=== PATIENT | male | born 1970 | race Caucasian/White ===

== ENCOUNTER → 2023-07-08 09:47 | Outpatient (CLI) | payer OTHER, SELFPAY ==
[2023-07-08 19:54] LABS: Add Manual Diff / Slide Review NO; Basophils Absolute Auto 0 /uL (0-100); Basophils Percent Auto 0.7 % (0-2); Eosinophils Absolute Auto 200 /uL (0-450); Eosinophils Percent Auto 3.4 % (2-4); Hematocrit 48.6 % (41-53); Hemoglobin 16.9 g/dL (13.5-17.5); Lymphocytes Absolute Auto 1600 /uL (1100-4500); Lymphocytes Percent Auto 30.4 % (25-40); Mean Corpuscular HGB Conc 34.9 % (30-36); Mean Corpuscular Hemoglobin 30.5 PG (26-34); Mean Corpuscular Volume 87.4 fL (80-100); Monocytes Absolute Auto 300 /uL (0-900); Monocytes Percent Auto 6.5 % (3-14); Neutrophils Absolute Auto 3200 /uL (1500-7000); Platelet Count 210 X10^3/uL (150-400); Red Blood Cell Count 5.56 X10^6/uL (4.5-5.9); Red Cell Distribution Width 13.6 % (11.6-14.8); White Blood Cell Count 5.4 X10^3/uL (4.5-11.0)
[2023-07-08 20:09] LABS: Alanine Aminotransferase 76 IU/L (<50); Albumin 4.3 g/dL (3.5-5.0); Albumin Globulin Ratio 1.5 (1.0-2.8); Alkaline Phosphatase 85 U/L (38-126); Aspartate Aminotransferase 38 IU/L (17-59); BUN Creatinine Ratio 11.2 (6-22); Bilirubin Total 0.6 mg/dL (0.2-1.3); Blood Urea Nitrogen 10 mg/dL (9-20); C-Reactive Protein Quant 1.1 mg/dL (<1.0); Carbon Dioxide 24 mmol/L (22-32); Chloride 102 mmol/L (98-107); Cholesterol 189 mg/dL (140-199); Estimated Glomerular Filt Rate > 60 mL/min (>60); Globulin 2.8 g/dL (1.7-4.1); Glucose 121 mg/dL (70-100); HDL Cholesterol 48 mg/dL (40-60); HEMOLYSIS < 15 (0-50); LDL Cholesterol Calculated 115 mg/dL (<100); Potassium 4.6 mmol/L (3.4-5.1); Sodium 135 mmol/L (137-145); Total Protein 7.1 g/dL (6.3-8.2); Triglycerides 130 mg/dL (35-150)
[2023-07-08 20:29] LABS: Prostate Specific Antigen Scrn 0.649 ng/mL (0.1-4.0)
[2023-07-08 20:34] LABS: Ferritin 181 ng/mL (18-464); TSH w/ Reflex to FT4 0.58 uIU/mL (0.47-4.68)
[2023-07-08 21:05] LABS: Folate 4.5 ng/mL (2.76-20.0); Vitamin B12 952 pg/mL (239-931)
[2023-07-08 21:21] LABS: Erythrocyte Sedimentation Rate 3 MM/HR (0-15)
== END ==
PROVIDERS: PCP Family Medicine; Visit Provider Family Medicine
DX: R06.00 Dyspnea, unspecified (principal); R53.83 Other fatigue; R41.840 Attention and concentration deficit; M54.50 Low back pain, unspecified; M54.32 Sciatica, left side; G62.9 Polyneuropathy, unspecified; R03.0 Elevated blood-pressure reading, without diagnosis of hypertension; Z12.5 Encounter for screening for malignant neoplasm of prostate; Z13.6 Encounter for screening for cardiovascular disorders
CPT/HCPCS: 80053; 80061; 82607; 82728; 82746; 84443; 85025; 85651; 86140; G0103

== ENCOUNTER → 2023-08-17 13:00 | Outpatient (CLI) | payer OTHER, SELFPAY ==
[2023-08-17 19:14] LABS: HEMOLYSIS < 15 (0-50); Iron 138 ug/dL (49-181)
[2023-08-17 19:21] LABS: Alanine Aminotransferase 73 IU/L (<50); Albumin 4.1 g/dL (3.5-5.0); Albumin Globulin Ratio 1.5 (1.0-2.8); Alkaline Phosphatase 106 U/L (38-126); Aspartate Aminotransferase 40 IU/L (17-59); Bilirubin Total 0.7 mg/dL (0.2-1.3); Bilirubin Unconjugated 0.4 mg/dL (0.0-1.1); C-Reactive Protein Quant 0.6 mg/dL (<1.0); Globulin 2.7 g/dL (1.7-4.1); HEMOLYSIS 15 (0-50); Hemoglobin A1C% w Est Avg Glu 5.7 % (4.0-6.0); Total Protein 6.8 g/dL (6.3-8.2)
[2023-08-17 19:25] LABS: Percent Iron Saturation 43 % (20-50); Total Iron Binding Capacity 321 ug/dL (261-462); Transferrin 284 mg/dL (206-381)
[2023-08-17 19:26] LABS: Erythrocyte Sedimentation Rate 1 MM/HR (0-15)
[2023-08-17 19:51] LABS: Ferritin 127 ng/mL (18-464)
[2023-08-19 04:37] LABS: HBsAg Screen Negative (Negative); Hepatitis A Antibody IgM Negative (Negative); Hepatitis B Core Antibody IgM Negative (Negative); Hepatitis C Antibody Non Reactive (Non Reactive)
[2023-08-19 21:38] LABS: Free Kappa Lt Chains, Serum 20.9 mg/L (3.3-19.4); Free Lambda Lt Chains,Serum 16.9 mg/L (5.7-26.3)
[2023-08-20 07:13] LABS: Hepatitis B Surf Ab Qualitativ Non Reactive (.)
[2023-08-20 12:08] LABS: Albumin 3.6 g/dL (2.9-4.4); Alpha-1-Globulin 0.2 g/dL (0.0-0.4); Alpha-2-Globulin 0.7 g/dL (0.4-1.0); Protein, Total 6.6 g/dL (6.0-8.5)
[2023-08-21 17:37] LABS: ANA Screen, IFA Negative (.)
== END ==
PROVIDERS: PCP Family Medicine; Visit Provider Family Medicine
DX: R73.9 Hyperglycemia, unspecified (principal); R74.01 Elevation of levels of liver transaminase levels; G62.9 Polyneuropathy, unspecified
CPT/HCPCS: 80074; 80076; 82728; 83036; 83540; 83550; 83883; 84155; 84165; 85651; 86038; 86140; 86706

== ENCOUNTER → 2023-10-22 10:35 | Outpatient (CLI) | payer OTHER, SELFPAY ==
--- NOTE | 2023-10-22 10:37 | DI.US.S_ITS ---
PROCEDURE: US ABDOMEN LIMITED INDICATIONS: elevated LFTs TECHNIQUE: Real-time scanning was performed of the abdominal and retroperitoneal organs, with image documentation. COMPARISON: None. FINDINGS: Liver: Liver is mildly enlarged measuring 18.1 cm maximum dimension. Liver is diffusely increased in echogenicity with posterior acoustic attenuation. A septated cluster of cysts is seen in the left hepatic lobe measuring 6.8 x 4.2 x 3.1 cm. Hepatopetal flow seen in the main portal vein. Gallbladder: No gallstones. No wall thickening. No pericholecystic edema. Negative sonographic Jordan's sign. Biliary ducts: Intrahepatic bile ducts are non-dilated. Extrahepatic bile duct caliber measures 6 mm. Normal is 6-7 mm or less in diameter, or 10 mm or less post-cholecystectomy. Pancreas: Pancreas is not well visualized due to overlying bowel gas. Kidneys: Right kidney appears normal without hydronephrosis. Miscellaneous: No free abdominal fluid. IMPRESSION: Diffusely increased hepatic echogenicity is nonspecific, but most commonly encountered in the setting of hepatic steatosis. However, other causes of hepatocellular disease are not excluded. Recommend clinical correlation. Approved by: Lennox Canada M.D. on 10/22/2023 at 21:17
== END ==
PROVIDERS: PCP Family Medicine; Referring Provider Family Medicine; Visit Provider Family Medicine
DX: R74.01 Elevation of levels of liver transaminase levels (principal)
CPT/HCPCS: 76705

== ENCOUNTER → 2024-08-18 14:28 | Outpatient (CLI) | payer OTHER, SELFPAY ==
[2024-08-18 20:13] LABS: Alanine Aminotransferase 83 IU/L (<50); Albumin 3.9 g/dL (3.5-5.0); Albumin Globulin Ratio 1.2 (1.0-2.8); Alkaline Phosphatase 127 U/L (38-126); Aspartate Aminotransferase 89 IU/L (17-59); BUN Creatinine Ratio 15.1 (6-22); Bilirubin Direct 0.3 mg/dL (0.0-0.4); Bilirubin Total 0.6 mg/dL (0.2-1.3); Blood Urea Nitrogen 14 mg/dL (9-20); Calcium 8.7 mg/dL (8.4-10.2); Carbon Dioxide 29 mmol/L (22-32); Chloride 102 mmol/L (98-107); Estimated Glomerular Filt Rate > 60 mL/min (>60); Globulin 3.2 g/dL (1.7-4.1); Glucose 138 mg/dL (70-100); HEMOLYSIS 38 (0-50); Sodium 133 mmol/L (137-145); Total Protein 7.1 g/dL (6.3-8.2)
== END ==
PROVIDERS: PCP Family Medicine; Referring Provider Family Medicine; Visit Provider Student in an Organized Health Care Education/Training Program
DX: K76.0 Fatty (change of) liver, not elsewhere classified (principal)
CPT/HCPCS: 80053; 82248

== ENCOUNTER → 2024-11-16 09:39 | Outpatient (CLI) | payer OTHER, SELFPAY ==
[2024-11-16 20:24] LABS: Add Manual Diff / Slide Review NO; Basophils Absolute Auto 0 /uL (0-100); Basophils Percent Auto 0.3 % (0-2); Eosinophils Absolute Auto 200 /uL (0-450); Eosinophils Percent Auto 3.2 % (2-4); Hematocrit 46.7 % (41-53); Hemoglobin 16.7 g/dL (13.5-17.5); Lymphocytes Absolute Auto 1900 /uL (1100-4500); Lymphocytes Percent Auto 28.5 % (25-40); Mean Corpuscular HGB Conc 35.7 % (30-36); Mean Corpuscular Hemoglobin 31.5 PG (26-34); Mean Corpuscular Volume 88.3 fL (80-100); Monocytes Absolute Auto 500 /uL (0-900); Monocytes Percent Auto 7.9 % (3-14); Neutrophils Absolute Auto 4100 /uL (1500-7000); Neutrophils Percent Auto 60.1 % (50-75); Platelet Count 195 X10^3/uL (150-400); Red Blood Cell Count 5.29 X10^6/uL (4.5-5.9); Red Cell Distribution Width 13.3 % (11.6-14.8); White Blood Cell Count 6.7 X10^3/uL (4.5-11.0)
[2024-11-16 20:36] LABS: Alanine Aminotransferase 120 IU/L (<50); Albumin 4.2 g/dL (3.5-5.0); Albumin Globulin Ratio 1.6 (1.0-2.8); Alkaline Phosphatase 108 U/L (38-126); Aspartate Aminotransferase 66 IU/L (17-59); BUN Creatinine Ratio 15.9 (6-22); Blood Urea Nitrogen 14 mg/dL (9-20); Calcium 8.7 mg/dL (8.4-10.2); Carbon Dioxide 22 mmol/L (22-32); Chloride 102 mmol/L (98-107); Cholesterol 195 mg/dL (140-199); Estimated Glomerular Filt Rate > 60 mL/min (>60); Globulin 2.6 g/dL (1.7-4.1); Glucose 212 mg/dL (70-100); HDL Cholesterol 41 mg/dL (40-60); HEMOLYSIS < 15 (0-50); LDL Cholesterol Calculated 119 mg/dL (<100); Potassium 4.1 mmol/L (3.4-5.1); Sodium 134 mmol/L (137-145); Total Protein 6.8 g/dL (6.3-8.2); Triglycerides 176 mg/dL (35-150)
[2024-11-16 21:10] LABS: Prostate Specific Antigen Scrn 0.183 ng/mL (0.1-4.0)
== END ==
PROVIDERS: PCP Family Medicine; Visit Provider Family Medicine
DX: R06.00 Dyspnea, unspecified (principal); I99.8 Other disorder of circulatory system; U09.9 Post COVID-19 condition, unspecified; I10 Essential (primary) hypertension; R73.9 Hyperglycemia, unspecified; K76.0 Fatty (change of) liver, not elsewhere classified; G47.30 Sleep apnea, unspecified; Z12.5 Encounter for screening for malignant neoplasm of prostate
CPT/HCPCS: 80053; 80061; 83036; 85025; G0103

== ENCOUNTER → 2024-11-25 13:56 | Outpatient (CLI) | payer OTHER, SELFPAY ==
--- NOTE | 2024-11-25 13:58 | DI.NM.S_ITS ---
PROCEDURE: NM SINAN PERF SPECT R&S PHARM Rest and pharmacological stress myocardial perfusion SPECT with gated imaging and ejection fraction RADIOPHARMACEUTICAL: 25.3 mCi Tc-99m tetrafosmin IV at rest and 25.2 mCi Tc-99m tetrafosmin IV at peak effect of pharmacological stress. Ifj-rut-fwpccand was performed. INDICATIONS: Dyspnea on exertion TECHNIQUE: Radiopharmaceutical was injected at peak stress test, and also at rest. SPECT images were obtained. SPECT myocardial perfusion images were displayed in short axis, horizontal long axis, and vertical long axis views. Gated images were reviewed using [employer] software. COMPARISON: None. CARDIAC STRESS: A pharmacologic stress test was performed under the supervision of an attending staff, using an infusion of regadenoson 0.4 mg IV. Hemodynamic data: There is normal blood pressure and heart rate response to pharmacologic stress. Symptoms: The patient denied anginal chest pain. EKG: No diagnostic changes of ischemia; no ectopy. FINDINGS: Raw data: There is good myocardial uptake of radiotracer. No significant motion artifacts. Lklv-sb-pyznu ratio is 0.33 (normal is less than 0.38 for tetrafosmin tracer). Left ventricle function: Gated images demonstrate normal left ventricular wall thickening. No segmental wall motion abnormalities. No transient ischemic dilation; TID is 0.67 (normal less than 1.3). Left ventricle resting end diastolic volume is 139 mL. Left ventricle stress ejection fraction is 75%; normal range is above 45%. Myocardial perfusion: There is normal distribution of activity in the right and left ventricular myocardium. No fixed or reversible perfusion defects. IMPRESSION: Low risk study. No evidence of pharmacologic induced ischemia or scar. Slightly increased LV size based on calculated LVEDV. Normal LV function. Dictated by: Jania Lopez D.O. on 11/28/2024 at 17:28 Approved by: Jania Lopez D.O. on 11/28/2024 at 17:30
== END ==
PROVIDERS: PCP Family Medicine; Referring Provider Family Medicine; Visit Provider Family Medicine
DX: I99.8 Other disorder of circulatory system (principal); U09.9 Post COVID-19 condition, unspecified; R06.00 Dyspnea, unspecified
CPT/HCPCS: 78452; 93017; A9502; J2785

== ENCOUNTER → 2024-11-28 13:43 | Outpatient (CLI) | payer OTHER, SELFPAY ==
--- NOTE | 2024-11-28 13:45 | DI.ECHO.S_ITS ---
[place] [facility]+ [facility] : : [address] : : [place] : : [id number] : : Phone: [phone] Echocardiogram Report + + :Name: HERO MAX Study Date: 11/28/2024 Height: 74 in : :[facility] ReadingLocation: Weight: 330 lb : : Gender: Male BSA: 2.7 m2 : :: 1970 Age: 54 yrs BP: 136/91 mmHg: :Reason For Study: DYSPNEA ON EXERTION : :Ordering Physician: DALE, : :MERYL Performed By: Gadiel Alvarenga : :Referring: MERYL HUNTER : + + Interpretation Summary The study quality was technically difficult. Borderline concentric left ventricular hypertrophy with ejection fraction 60- 65%. No valvular abnormality. Procedure: A two-dimensional transthoracic echocardiogram with color flow and Doppler was performed. The study quality was technically difficult. There is no prior echocardiogram noted for this patient. The patient was in normal sinus rhythm during the exam. Left Ventricle: The left ventricle is normal in size. There is borderline concentric left ventricular hypertrophy. There is no ventricular septal defect visualized. The ejection fraction is estimated to be 60-65%. There are no obvious focal wall motion abnormalities noted but poor endocardial definition reduces the sensitivity for the detection of such. Diastolic parameters suggest probable normal left ventricular diastolic function and normal filling pressures. Right Ventricle: The right ventricle grossly appears normal in size with probable normal systolic function. Atria: The left atrial size is normal. Right atrial size is normal. There is no Doppler evidence for an interatrial shunt. Mitral Valve: The mitral valve leaflets appear normal. There is no evidence of stenosis, fluttering, or prolapse. There is trace mitral regurgitation. Aortic Valve: The aortic valve is grossly normal. The aortic valve is not well visualized. The aortic valve opens well. No aortic regurgitation is present. Tricuspid Valve: The tricuspid valve is not well visualized, but is grossly normal. No tricuspid regurgitation. Pulmonic Valve: The pulmonic valve is not well seen, but is grossly normal. There is no pulmonic valvular regurgitation. Great Vessels: The aortic root is normal size. The dimensions of the ascending aorta are normal. The pulmonary artery is normal size. The inferior vena cava was not visualized. Pericardium/ Pleura There is no pericardial effusion. MMode/2D Measurements & Calculations LVIDd: 5.7 cm LVOT diam: 2.2 cm LVIDs: 3.6 cm Ao root diam: 3.6 cm FS: 37.2 % asc Aorta Diam: 3.2 cm EPSS: 0.97 cm IVSd: 1.1 cm LVPWd: 1.1 cm LV clark. diameter/BSA (cm/m^2): 2.1 LV sys. diameter/BSA (cm/m^2): 1.3 LA A2 area: 23.0 cm2 RA long axis: 4.1 cm LA A4 area: 19.3 cm2 RA area: 10.2 cm2 LA length (vol): 5.7 cm RA vol: 21.3 ml LA vol: 66.0 ml RA : 7.9 ml/m2 LA vol index: 24.5 ml/m2 RVD1 (basal): 4.6 cm RVD2 (mid): 3.8 cm TAPSE: 2.1 cm Doppler Measurements & Calculations Ao V2 max: 139.3 cm/sec LVOT Max Jesús: 120.9 cm/sec Ao V2 mean: 101.3 cm/sec LV V1 max P.8 mmHg Ao max P.8 mmHg LV V1 VTI: 28.3 cm Ao mean P.5 mmHg KALI(I,D): 3.5 cm2 Ao V2 VTI: 30.8 cm KALI(V,D): 3.4 cm2 sev ratio: 0.92 KALI indexed to BSA (cm^2/m^2): 1.3 MV E max jesús: 89.6 cm/sec PA V2 max: 76.4 cm/sec MV A max jesús: 65.8 cm/sec PA V2 mean: 52.2 cm/sec MV E/A: 1.4 PA mean P.2 mmHg Med Peak E' Jesús: 9.3 cm/sec PA pr(Accel): 48.2 mmHg E/E' med: 9.6 Lat Peak E' Jesús: 10.3 cm/sec E/E' lat: 8.7 E/e' average: 9.2 MV dec time: 0.29 sec SV(LVOT): 109.2 ml Electronically signed by: Jim Adams on Reading Physician:11/28/2024 04:09 PM
== END ==
LOC: NUCM 13:44
PROVIDERS: PCP Family Medicine; Referring Provider Family Medicine; Visit Provider Family Medicine
DX: I99.8 Other disorder of circulatory system (principal); U09.9 Post COVID-19 condition, unspecified; R06.00 Dyspnea, unspecified
CPT/HCPCS: 93306

== ENCOUNTER → 2025-01-10 14:30 | Outpatient (CLI) | payer OTHER, SELFPAY ==
[2025-01-10 19:12] LABS: Alanine Aminotransferase 78 IU/L (<50); Albumin 4.4 g/dL (3.5-5.0); Albumin Globulin Ratio 1.8 (1.0-2.8); Alkaline Phosphatase 107 U/L (38-126); Aspartate Aminotransferase 51 IU/L (17-59); BUN Creatinine Ratio 20.5 (6-22); Bilirubin Total 0.6 mg/dL (0.2-1.3); Blood Urea Nitrogen 18 mg/dL (9-20); Calcium 9.3 mg/dL (8.4-10.2); Carbon Dioxide 24 mmol/L (22-32); Chloride 102 mmol/L (98-107); Estimated Glomerular Filt Rate > 60 mL/min (>60); Globulin 2.5 g/dL (1.7-4.1); Glucose 98 mg/dL (70-99); HEMOLYSIS < 15 (0-50); Potassium 3.8 mmol/L (3.4-5.1); Sodium 136 mmol/L (137-145); Total Protein 6.9 g/dL (6.3-8.2)
[2025-01-10 19:13] LABS: Add Manual Diff / Slide Review NO; Basophils Absolute Auto 0 /uL (0-100); Basophils Percent Auto 0.6 % (0-2); Eosinophils Absolute Auto 300 /uL (0-450); Hemoglobin 16.7 g/dL (13.5-17.5); Lymphocytes Absolute Auto 2200 /uL (1100-4500); Lymphocytes Percent Auto 28.9 % (25-40); Mean Corpuscular HGB Conc 34.8 % (30-36); Mean Corpuscular Hemoglobin 31.2 PG (26-34); Mean Corpuscular Volume 89.8 fL (80-100); Monocytes Absolute Auto 500 /uL (0-900); Monocytes Percent Auto 6.9 % (3-14); Neutrophils Absolute Auto 4500 /uL (1500-7000); Neutrophils Percent Auto 59.6 % (50-75); Platelet Count 191 X10^3/uL (150-400); Red Blood Cell Count 5.34 X10^6/uL (4.5-5.9); Red Cell Distribution Width 13.1 % (11.6-14.8); White Blood Cell Count 7.6 X10^3/uL (4.5-11.0)
== END ==
PROVIDERS: PCP Family Medicine; Visit Provider Student in an Organized Health Care Education/Training Program
DX: K75.81 Nonalcoholic steatohepatitis (NASH) (principal)
CPT/HCPCS: 80053; 85025

== ENCOUNTER → 2025-06-15 11:01 | Outpatient (CLI) | payer OTHER, SELFPAY ==
[2025-06-15 19:13] LABS: Microalbumi Creatinin Ratio Ur 8.0 ug/mg CR (<30)
== END ==
PROVIDERS: PCP Family Medicine; Visit Provider Family Medicine
DX: Z02.89 Encounter for other administrative examinations (principal); E11.69 Type 2 diabetes mellitus with other specified complication
CPT/HCPCS: 82043; 82570

== ENCOUNTER → 2025-07-27 14:09 | Outpatient (CLI) | payer OTHER, SELFPAY ==
[2025-07-27 19:45] LABS: Add Manual Diff / Slide Review NO; Hematocrit 49.2 % (41-53); Hemoglobin 17.2 g/dL (13.5-17.5); Lymphocytes Absolute Auto 2200 /uL (1100-4500); Mean Corpuscular HGB Conc 35.1 % (30-36); Mean Corpuscular Hemoglobin 32.0 PG (26-34); Mean Corpuscular Volume 91.2 fL (80-100); Platelet Count 208 X10^3/uL (150-400)
[2025-07-27 19:47] LABS: Alanine Aminotransferase 110 IU/L (<50); Albumin 4.5 g/dL (3.5-5.0); Albumin Globulin Ratio 1.7 (1.0-2.8); Alkaline Phosphatase 110 U/L (38-126); Blood Urea Nitrogen 16 mg/dL (9-20); Calcium 8.9 mg/dL (8.4-10.2); Carbon Dioxide 23 mmol/L (22-32); Chloride 103 mmol/L (98-107); Estimated Glomerular Filt Rate > 60 mL/min (>60); Globulin 2.7 g/dL (1.7-4.1); Glucose 123 mg/dL (70-99); HEMOLYSIS 25 (0-50); Potassium 4.2 mmol/L (3.4-5.1); Sodium 138 mmol/L (137-145); Total Protein 7.2 g/dL (6.3-8.2)
== END ==
PROVIDERS: PCP Family Medicine; Visit Provider Student in an Organized Health Care Education/Training Program
DX: K75.81 Nonalcoholic steatohepatitis (NASH) (principal)
CPT/HCPCS: 80053; 85025